=== PATIENT | male | born 1950 | race Caucasian/White ===

== ENCOUNTER 2020-10-23 14:28 | Emergency (ER) | payer OTHER, BC ==
[2020-10-23 15:39] LABS: Absolute Lymphocytes (CBC) 1.3 K/uL (0.7-4.9); Basophils % 0.5 % (0-1.3); Hematocrit 46.3 % (39.6-49.0); Lymphocytes % 17.5 % (15.3-44.8); MPV 7.5 fL (7.6-11.3); RBC Red Blood Cell Count 5.11 M/uL (4.33-5.43)
[2020-10-23 15:59] LABS: BUN Blood Urea Nitrogen 30 mg/dL (7-18); Bicarbonate 25 mmol/L (21-32); Creatine Phosphokinase 276 U/L (39-308); Glucose Level 115 mg/dL (74-106); Sodium Level 141 mmol/L (136-145); Troponin (Emerg Dept Use Only) < 0.02 ng/mL (0.0-0.045)
[2020-10-23 16:00] LABS: Potassium 4.2 mmol/L (3.5-5.1)
--- NOTE | 2020-10-24 18:09 | EDPHYS ---
Physician Documentation [facility] Name: Duc Main Age: 70 yrs Sex: Male : 1950 Arrival Date: 10/23/2020 Time: 14:25 Bed 20 Private MD: ED Physician Grabiel Potter HPI: 10/23 14:38 This 70 yrs old Male presents to ER via Unassigned with complaints of Chest snw Tightness. 14:38 The patient or guardian reports chest pain that is located primarily in the anterior snw chest wall, bilaterally. Onset: suddenly, this morning. The pain does not radiate. Associated signs and symptoms: The patient has no apparent associated signs or symptoms. The chest pain is described as a pressure. Duration: The patient or guardian reports a single episode. Modifying factors: The symptoms are alleviated by nothing. the symptoms are aggravated by nothing. Severity of pain: At its worst the pain was very mild. The patient has experienced a previous episode, many years ago, and the symptoms today are exactly the same. The patient has not recently seen a physician. visiting from [place]. Historical: - Allergies: 14:41 No Known Allergies; aa5 - Home Meds: 14:41 statin [Active]; aa5 - PMHx: 14:41 Hyperlipidemia; aa5 - PSHx: 14:41 Xavi shoulders; Appendectomy; Vasectomy and reversal; aa5 - Immunization history:: Adult Immunizations unknown. - Social history:: Smoking status: Patient denies any tobacco usage or history of. ROS: 14:38 Constitutional: Negative for fever, chills, and weight loss, Eyes: Negative for injury, snw pain, redness, and discharge, ENT: Negative for injury, pain, and discharge, Neck: Negative for injury, pain, and swelling, Respiratory: Negative for shortness of breath, cough, wheezing, and pleuritic chest pain, Abdomen/GI: Negative for abdominal pain, nausea, vomiting, diarrhea, and constipation, Back: Negative for injury and pain, : Negative for injury, bleeding, discharge, and swelling, MS/Extremity: Negative for injury and deformity, Skin: Negative for injury, rash, and discoloration, Neuro: Negative for headache, weakness, numbness, tingling, and seizure, Psych: Negative for depression, anxiety, suicide ideation, homicidal ideation, and hallucinations. 14:38 Cardiovascular: Positive for chest pain, of the chest. Exam: 14:37 Constitutional: This is a well developed, well nourished patient who is awake, alert, snw and in no acute distress. Head/Face: Normocephalic, atraumatic. Eyes: Pupils equal round and reactive to light, extra-ocular motions intact. Lids and lashes normal. Conjunctiva and sclera are non-icteric and not injected. Cornea within normal limits. Periorbital areas with no swelling, redness, or edema. ENT: Nares patent. No nasal discharge, no septal abnormalities noted. Tympanic membranes are normal and external auditory canals are clear. Oropharynx with no redness, swelling, or masses, exudates, or evidence of obstruction, uvula midline. Mucous membranes moist. Neck: Trachea midline, no thyromegaly or masses palpated, and no cervical lymphadenopathy. Supple, full range of motion without nuchal rigidity, or vertebral point tenderness. No Meningismus. Chest/axilla: Normal chest wall appearance and motion. Nontender with no deformity. No lesions are appreciated. Cardiovascular: Regular rate and rhythm with a normal S1 and S2. No gallops, murmurs, or rubs. Normal PMI, no JVD. No pulse deficits. Respiratory: Lungs have equal breath sounds bilaterally, clear to auscultation and percussion. No rales, rhonchi or wheezes noted. No increased work of breathing, no retractions or nasal flaring. Abdomen/GI: Soft, non-tender, with normal bowel sounds. No distension or tympany. No guarding or rebound. No evidence of tenderness throughout. Back: No spinal tenderness. No costovertebral tenderness. Full range of motion. Skin: Warm, dry with normal turgor. Normal color with no rashes, no lesions, and no evidence of cellulitis. MS/ Extremity: Pulses equal, no cyanosis. Neurovascular intact. Full, normal range of motion. Neuro: Awake and alert, GCS 15, oriented to person, place, time, and situation. Cranial nerves II-XII grossly intact. Motor strength 5/5 in all extremities. Sensory grossly intact. Cerebellar exam normal. Normal gait. Psych: Awake, alert, with orientation to person, place and time. Behavior, mood, and affect are within normal limits. Vital Signs: 14:36 BP 144 / 75; Pulse 82; Resp 16 S; Temp 97.8(TE); Pulse Ox 98% on R/A; Weight 115.21 kg aa5 (R); Height 5 ft. 11 in. (180.34 cm) (R); Pain 1/10; 15:00 BP 113 / 98; Pulse 78; Resp 16; Pulse Ox 98% ; bp 16:00 BP 116 / 59; Pulse 78; Resp 22; Pulse Ox 99% ; bp 14:36 Body Mass Index 35.43 (115.21 kg, 180.34 cm) aa5 MDM: 14:31 Patient medically screened. snw 16:16 ECG:. The patient was not given aspirin in the Emergency Department. Patient reports snw taking aspirin within the past 24 hours. Data reviewed: vital signs, nurses notes, EKG, radiologic studies. Counseling: I had a detailed discussion with the patient and/or guardian regarding: the historical points, exam findings, and any diagnostic results supporting the discharge/admit diagnosis, lab results, radiology results, the need for outpatient follow up, to return to the emergency department if symptoms worsen or persist or if there are any questions or concerns that arise at home. Special discussion: Based on the patient's history, exam, and Dx evaluation, there is no indication for emergent intervention or inpatient Tx. It is understood by the patient/guardian that if the Sx's persist or worsen they need to return immediately for re-evaluation. Based on the history and exam findings, there is no indication for further emergent testing or inpatient evaluation. I discussed with the patient/guardian the need to see the primary care provider for further evaluation of the symptoms. 10/23 14:37 Order name: EKG - Nurse/Tech; Complete Time: 14:54 snw EC:54 Rate is 78 beats/min. Rhythm is regular. QRS [place] is Normal. NC interval is normal. QRS snw interval is normal. QT interval is normal. No Q waves. T waves are Normal. No ST changes noted. Clinical impression: Normal ECG. Administered Medications: No medications were administered Disposition: 18:32 Co-signature as Attending Physician, Grabiel Potter MD. ma2 Disposition: 10/23/20 16:20 Discharged to Home. Impression: Chest pain, unspecified. - Condition is Stable. - Discharge Instructions: Nonspecific Chest Pain, Hypertension, How to Take Your Blood Pressure, [id number], Aspirin and Your Heart. - Prescriptions for Protonix 40 mg Oral Tablet - take 1 tablet by ORAL route once daily; 30 tablet. - Medication Reconciliation Form, Thank You Letter, Antibiotic Education, Prescription Opioid Use form. - Follow up: Emergency Department; When: As needed; Reason: Worsening of condition. Signatures: Marbella Mcneal, ANTONIA-C SHOWER ATTENDANT-Csnw Carol Ann Crain, RN RN aa5 Dannie Walters RN RN bp Grabiel Potter MD MD ma2 Corrections: (The following items were deleted from the chart) 16:32 16:20 10/23/2020 16:20 Discharged to Home. Impression: Chest pain, unspecified. bp Condition is Stable. Forms are Medication Reconciliation Form, Thank You Letter, Antibiotic Education, Prescription Opioid Use. Follow up: Emergency Department; When: As needed; Reason: Worsening of condition. snw
--- NOTE | 2020-10-24 18:10 | ER ---
Nurse's Notes [facility] Name: Duc Main Age: 70 yrs Sex: Male : 1950 Arrival Date: 10/23/2020 Time: 14:25 Bed 20 Private MD: Diagnosis: Chest pain, unspecified Presentation: 10/23 14:36 Chief complaint: Patient states: chest tightness that began today after noon. Pt denies aa5 cough, denies SOB, denies nausea/vomiting. 14:36 Coronavirus screen: Client denies travel out of the [place] in the last 14 days. At this aa5 time, the client does not indicate any symptoms associated with coronavirus-19. Ebola Screen: Patient negative for fever greater than or equal to 101.5 degrees Fahrenheit, and additional compatible Ebola Virus Disease symptoms. Initial Sepsis Screen: Does the patient meet any 2 criteria? No. Patient's initial sepsis screen is negative. Does the patient have a suspected source of infection? No. Patient's initial sepsis screen is negative. Risk Assessment: Do you want to hurt yourself or someone else? Patient reports no desire to harm self or others. Onset of symptoms was October 2020. 14:36 Acuity: SKIP 3 aa5 14:36 Method Of Arrival: Ambulatory aa5 Triage Assessment: 14:45 General: Appears in no apparent distress. uncomfortable, Behavior is cooperative, bp appropriate for age, anxious. Pain: Complains of pain in chest. EENT: No deficits noted. Neuro: No deficits noted. Cardiovascular: Rhythm is sinus rhythm. Cardiovascular: Reports chest pain. Respiratory: No deficits noted. GI: No signs and/or symptoms were reported involving the gastrointestinal system. : No signs and/or symptoms were reported regarding the genitourinary system. Derm: No deficits noted. Musculoskeletal: No deficits noted. Historical: - Allergies: 14:41 No Known Allergies; aa5 - Home Meds: 14:41 statin [Active]; aa5 - PMHx: 14:41 Hyperlipidemia; aa5 - PSHx: 14:41 Xavi shoulders; Appendectomy; Vasectomy and reversal; aa5 - Immunization history:: Adult Immunizations unknown. - Social history:: Smoking status: Patient denies any tobacco usage or history of. Screenin:45 Abuse screen: Denies threats or abuse. Denies injuries from another. Nutritional bp screening: No deficits noted. Tuberculosis screening: No symptoms or risk factors identified. Fall Risk None identified. Assessment: 14:45 General: SEE TRIAGE NOTE. bp 14:45 Pain: Pain does not radiate. Pain began 3 hours ago. bp 16:00 Reassessment: Patient appears in no apparent distress at this time. Patient and/or bp family updated on plan of care and expected duration. Pain level reassessed. Patient is alert, oriented x 3, equal unlabored respirations, skin warm/dry/pink. PT RETURNED FROM [facility], ALL CURRENT ORDERS COMPLETED. 16:29 Reassessment: PT D/C HOME AMBULATORY, DX WITH UNSPECIFIED CHEST PAIN. bp Vital Signs: 14:36 BP 144 / 75; Pulse 82; Resp 16 S; Temp 97.8(TE); Pulse Ox 98% on R/A; Weight 115.21 kg aa5 (R); Height 5 ft. 11 in. (180.34 cm) (R); Pain 1/10; 15:00 BP 113 / 98; Pulse 78; Resp 16; Pulse Ox 98% ; bp 16:00 BP 116 / 59; Pulse 78; Resp 22; Pulse Ox 99% ; bp 14:36 Body Mass Index 35.43 (115.21 kg, 180.34 cm) aa5 ED Course: 14:25 Patient arrived in ED. ds1 14:29 Marbella Mcneal FNP-C is PHCP. snw 14:29 Grabiel Potter MD is Attending Physician. snw 14:36 Arm band placed on Patient placed in an exam room, on a stretcher. aa5 14:39 Triage completed. aa5 14:45 Patient has correct armband on for positive identification. Bed in low position. Call bp light in reach. Side rails up X2. Adult w/ patient. monitoring coordinator on. Pulse ox on. NIBP on. 14:45 Inserted saline lock: 20 gauge in right hand, using aseptic technique. Blood collected. bp Patient maintains SpO2 saturation greater than 95% on room air. 14:48 Dannie Walters, NIDIA is Primary Nurse. bp 16:30 No provider procedures requiring assistance completed. IV discontinued, intact, bp bleeding controlled, No redness/swelling at site. Pressure dressing applied. Administered Medications: No medications were administered Outcome: 16:20 Discharge ordered by MD. al 16:30 Discharged to home ambulatory, with family. bp 16:30 Condition: stable 16:30 Discharge instructions given to patient, Instructed on discharge instructions, follow up and referral plans. medication usage, Demonstrated understanding of instructions, follow-up care, medications, Prescriptions given X 1. 16:32 Patient left the ED. bp Signatures: Marbella Mcneal, SOLE TACKER-C SOLE TACKER-Csnw Gladys Castellanos ds1 Carol Ann Crain, RN RN aa5 Dannie Walters, NIDIA RN bp
--- NOTE | 2020-10-25 12:58 | RAD REPORT ---
EXAM DESCRIPTION: RAD - Chest Pa And Lat (2 Views) - 10/25/2020 12:36 pm CLINICAL HISTORY: CHEST PAIN Chest pain. COMPARISON: No comparisons FINDINGS: Mild bilateral interstitial lung opacities are seen which may represent interstitial pneum onitis or mild interstitial pulmonary edema. The heart is upper limit normal in size. Mild degenerati ve changes are present both shoulders.
== END 2020-10-23 16:32 | disposition home or self-care (01) ==
LOC: ER 14:28
DX: R07.89 Other chest pain (principal); E78.5 Hyperlipidemia, unspecified
CPT/HCPCS: 36415; 71046; 80048; 82550; 84484; 85025; 93005; 99285